=== PATIENT | male | born 1975 | race Caucasian/White ===

== ENCOUNTER 2017-05-24 17:15 | Emergency (ER) | payer SELFPAY ==
[2017-05-24 17:31] VITALS: BP 131/78; PULSE 114; BMI 32.3
[2017-05-24] MEDS ORDERED: ACETAMINOPHEN 325 MG TABLET (FP) PO ONE (17:35)
[2017-05-24] MEDS ORDERED: PENICILLIN G BENZATHINE 1,200,000 UNIT/2 ML PFS IM ONE (19:01)
[2017-05-24] MEDS ORDERED: IBUPROFEN 400 MG TABLET (FP) PO ONE ×2 (19:01→19:03)
[2017-05-24] MEDS ORDERED: PENICILLIN G BENZATHINE 2,400,000 UNIT/4 ML PFS ONE (19:03)
--- NOTE | 2017-05-24 19:08 | PDOC ---
History of Present Illness - General Chief Complaint: Cold Symptoms Stated Complaint: FEVER Time Seen by Provider: 05/24/17 18:20 History Source: Patient - History of Present Illness Timing/Duration: reports: yesterday Associated Symptoms: reports: fever/chills, sore throat. denies: cough, earache , facial pain, muscle aches, nasal congestion, nasal drainage, shortness of breath, wheezing Past History - Past Medical History Allergies/Adverse Reactions: Allergies Allergy/AdvReac Type Severity Reaction Status Date / Time No Known Allergies Allergy Verified 05/24/17 17:27 Kidney Stones: Yes - Psycho/Social/Smoking Cessation Hx Suicidal Ideation: No Smoking History: Current every day smoker Have you smoked in the past 12 months: Yes Number of Cigarettes Smoked Daily: 2 Information on smoking cessation initiated: No Review of Systems - Review of Systems Constitutional: Yes: Fever HEENTM: Yes: Throat Pain. No: Ear Pain Respiratory: No: Cough, Shortness of Breath ABD/GI: No: Diarrhea, Nausea, Vomiting *Physical Exam - Vital Signs Last Vital Signs Temp Pulse Resp BP Pulse Ox 103.1 F H 114 H 19 131/78 96 05/24/17 17:27 05/24/17 17:27 05/24/17 17:27 05/24/17 17:27 05/24/17 17:27 - Physical Exam General Appearance: Yes: Appropriately Dressed. No: Apparent Distress HEENT: positive: Normal Voice, TMs Normal, Tonsillar Exudate. negative: Scleral Icterus (R), Scleral Icterus (L) Neck: positive: Supple. negative: Lymphadenopathy (R), Lymphadenopathy (L) Respiratory/Chest: positive: Lungs Clear, Normal Breath Sounds. negative: Respiratory Distress Integumentary: positive: Dry, Warm Neurologic: positive: Fully Oriented, Alert, Normal Mood/Affect ED Treatment Course - Medications Given in the ED: ED Medications Discontinued Medications Generic Name Dose Route Start Last Admin Trade Name Freq PRN Reason Stop Dose Admin Acetaminophen 975 mg 05/24/17 17:35 05/24/17 17:36 Tylenol - PO 05/24/17 17:36 975 mg NOW ONE Administration Medical Decision Making - Medical Decision Making 05/24/17 19:04 41 yo M, denies pmhx, smoker, p/w sore throat w/ fever since yesterday. No sick contacts See exam Strep pharyngitis presumed Febrile to 103 and tachy at triage, improved w/ tylenol, w/ b/l tonsilar exudates, no e/o [employer] -bicillin -dc 05/24/17 19:08 05/24/17 19:09 05/24/17 19:40 *DC/Admit/Observation/Transfer Diagnosis at time of Disposition: Strep pharyngitis - Discharge Dispostion Disposition: HOME Condition at time of disposition: Improved - Patient Instructions Printed Discharge Instructions: Strep Throat Additional Instructions: Take motrin as needed for pain Return to ED for worsening of symptoms Print Language: SETSWANA
[2017-05-24 19:20] VITALS: TEMP 99.7
== END 2017-05-24 19:20 | disposition home or self-care (01) ==
LOC: JERFT 17:15
DX: J02.0 Streptococcal pharyngitis (principal); B95.0 Streptococcus, group A, as the cause of diseases classified elsewhere
CPT/HCPCS: 99281-25

== ENCOUNTER 2019-09-01 17:53 | Inpatient (IN) | payer OTHER ==
[2019-09-01 18:03] VITALS: BMI 33.9
--- NOTE | 2019-09-01 18:04 | PDOC ---
Rapid Medical Evaluation Chief Complaint: Pain Time Seen by Provider: 09/01/19 18:00 Medical Evaluation: Allergies Allergy/AdvReac Type Severity Reaction Status Date / Time No Known Allergies Allergy Verified 09/01/19 18:00 09/01/19 18:00 I have performed a brief in-person evaluation of this patient. The patient presents with a chief complaint of: 2-3 weeks of R sided chest pain radiating to the back w/ SOB and nausea. Denies trauma, no vomiting, no cold symptoms, no cough. H/o kidney stones Pertinent physical exam findings: Lungs CTA. RUQ/R flank tenderness I have ordered the following: UA, Ucx, CBC, CMP, cardiac enzymes, EKG, CXR, gallbladder/kidney sono The patient will proceed to the ED for further evaluation. 09/01/19 18:06 Discharge Disposition - Diagnosis Flank pain - Referrals - Patient Instructions - Post Discharge Activity
[2019-09-01] MEDS ORDERED: ACETAMINOPHEN 1000 MG/100 ML VIAL (NON FORMULARY) IVPB ONE (20:21)
[2019-09-01] MEDS ORDERED: SODIUM CHLORIDE 1,000 ML IV STA (20:21)
--- NOTE | 2019-09-01 20:27 | PDOC ---
History of Present Illness - General Chief Complaint: Pain Stated Complaint: PAIN Time Seen by Provider: 09/01/19 18:00 History Source: Patient Exam Limitations: No Limitations - History of Present Illness Initial Comments: 09/01/19 20:23 43y M with no significant presenting to ED with complaints of RUQ abdominal pain that worsened and has been constant for the past week. Pt states that he had the pain on and off for the past 2-3 weeks but last week it has been constant. Pain is RUQ, constant, radiates to the back, is 5/10 and is associated with nausea. The pain is worsened with meals. He denies vomiting, diarrhea, bloody stools, fevers, chills, chest pain, lightheadedness. Pain feels similar to the pain he had 10y ago which resulted in cholecystectomy PMD: none PMH: none PSH: Cholecystectomy 10y ago Meds: none Allergies: nkda Social: 5 cigarettes/day, occasional alcohol use Past History - Past Medical History Allergies/Adverse Reactions: Allergies Allergy/AdvReac Type Severity Reaction Status Date / Time No Known Allergies Allergy Verified 09/01/19 18:00 Home Medications: Ambulatory Orders Butalb/Acetaminophen/Caffeine [Fioricet 50-300-40 mg Capsule] 1 each PO QID PRN #20 capsule 06/20/18 COPD: No Kidney Stones: Yes - Immunization History Immunization Up to Date: Yes - Psycho Social/Smoking Cessation Hx Smoking History: Never smoked Have you smoked in the past 12 months: Yes Number of Cigarettes Smoked Daily: 2 Hx Alcohol Use: No Drug/Substance Use Hx: No Substance Use Type: None Review of Systems - Review of Systems Constitutional: No: Chills, Fever HEENTM: No: Symptoms Reported Respiratory: No: Shortness of Breath, Productive cough Cardiac (ROS): No: Chest Pain, Lightheadedness, Palpitations ABD/GI: Yes: See HPI, Nausea, Abdominal cramping. No: Constipated, Diarrhea, Vomiting : No: Symptoms Reported Musculoskeletal: Yes: See HPI Integumentary: No: Symptoms Reported Neurological: No: Symptoms reported *Physical Exam - Vital Signs Last Vital Signs Temp Pulse Resp BP Pulse Ox 99.3 F 78 17 116/74 99 09/01/19 18:00 09/01/19 18:00 09/01/19 18:00 09/01/19 18:00 09/01/19 18:00 - Physical Exam General Appearance: Yes: Nourished, Appropriately Dressed. No: Apparent Distress HEENT: positive: EOMI, RAFFAELE, Normal ENT Inspection. negative: Scleral Icterus ( R), Scleral Icterus (L) Neck: positive: Trachea midline, Supple. negative: Lymphadenopathy (R), Lymphadenopathy (L) Respiratory/Chest: positive: Lungs Clear, Normal Breath Sounds. negative: Crackles, Rales, Rhonchi, Stridor, Wheezing Cardiovascular: positive: Regular Rhythm, Regular Rate, S1, S2. negative: Edema , JVD, Murmur Vascular Pulses: Dorsalis-Pedis (R): 2+, Doralis-Pedis (L): 2+ Gastrointestinal/Abdominal: positive: Normal Bowel Sounds, Soft. negative: Tender Musculoskeletal: negative: CVA Tenderness Extremity: positive: Normal Capillary Refill. negative: Swelling, Calf Tenderness Integumentary: positive: Normal Color, Dry, Warm. 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 vitals wnl PE: RUQ tenderness +Díaz's sign. NO CVA tenderness. ddx includes but not limited to cholangitis, choledocolithiasis, pud, pancreatitis, kidney stone, pyelonephritis, gastritis. PERC negative labs ordered by rme, added trop. -iv fluids pepcid, ofirmev. POCUS: no ff. CTAP with IV contrast. 09/02/19 00:51 Central mesenteric fat stranding, mostly in left upper quadrant, possibly due to mesenteritis or edema. 7 mm hyperdensity in lower posterior aspect of central mesenteric fat haziness (axial image 76, for example), question incidental calcified lymph node versus a small aneurysm versus small acute hemoperitoneum of unknown origin. Advise followup to assess for stability. Prominent mesenteric and periportal lymph nodes. Consulting Surgery: Dr. Ervin Smith sending lactate. Spoke to Dr. Cruz who stated that this is likely mesenteric panniculitis. recommended to consult GI and admit for pain managment and obs. Will need repeat CT. CXR: no infiltrates, consolidations, effusions. ekg: nsr. microblog sent. -iv fluids, morphine dispo: admit. pt agrees to plan accepted by hospitalist Discharge - Discharge Information Problems reviewed: Yes Clinical Impression/Diagnosis: Mesenteric panniculitis Abdominal pain Qualifiers: Abdominal location: right upper quadrant Qualified Code(s): R10.11 - Right upper quadrant pain Condition: Stable - Admission Yes - Follow up/Referral - Patient Discharge Instructions - Post Discharge Activity
--- NOTE | 2019-09-01 20:36 | PDOC ---
Attending Attestation - Resident Resident Name: AnahiRocio - ED Attending Attestation I have performed the following: I have examined & evaluated the patient, The case was reviewed & discussed with the resident, I agree w/resident's findings & plan - HPI HPI: 09/02/19 03:48 see resident hpi - Physicial Exam PE: 09/02/19 03:51 agree with resident exam - Medical Decision Making 09/02/19 03:51 43-year-old male with abdominal pain CT scan of the abdomen and pelvis shows nonspecific hypodensity in the right upper quadrant Case discussed with surgery who feels it is mesenteric panniculitis Patient to be admitted to medical service for further evaluation
[2019-09-01] MEDS ORDERED: ACETAMINOPHEN INJECTION 100 ML IVPB ONE (20:51)
[2019-09-01 20:59] LABS: BASO % 0.9 % (0-2.0); EOS % 1.5 % (0-4.5); HEMOGLOBIN 14.5 GM/dL (11.7-16.9); LYMPH % 38.3 % (8-40); MCH 31.8 pg (25.7-33.7); MCHC 34.5 g/dl (32.0-35.9); MEAN PLT VOLUME 9.6 fl (7.5-11.1); MONO % 7.1 % (3.8-10.2); NEUT % 52.2 % (42.8-82.8); PLATELET COUNT 199 K/MM3 (134-434); RBC 4.56 M/mm3 (4.00-5.60); RDW 13.2 % (11.9-15.9)
[2019-09-01] MEDS ORDERED: FAMOTIDINE 20 MG/50 ML IVPB 20 MG/50 ML MG IVPB ONE ×2 (21:09→21:17)
[2019-09-01 21:16] LABS: ALBUMIN 3.6 g/dl (3.4-5.0); BILIRUBIN,TOTAL 0.5 mg/dL (0.2-1); BLOOD UREA NITROGEN 17.9 mg/dL (7-18); CALCIUM 8.7 mg/dL (8.5-10.1); POTASSIUM 4.2 mmol/L (3.5-5.1)
[2019-09-01 21:27] LABS: PH,URINE 5.5 (5.0-8.0); URINE APPEARANCE CLEAR; URINE BILIRUBIN NEGATIVE (NEGATIVE); URINE COLOR YELLOW; URINE GLUCOSE (UA) NEGATIVE (NEGATIVE); URINE KETONE TRACE (NEGATIVE); URINE LEUK ESTERASE NEGATIVE (NEGATIVE); URINE NITRITE NEGATIVE (NEGATIVE); URINE PROTEIN NEGATIVE (NEGATIVE); URINE UROBILINOGEN 0.2 mg/dL (0.2-1.0)
[2019-09-02] MEDS ORDERED: morphine CARPU-JECT 4 MG/1 ML DISP.SYRIN IVPUSH ONE (00:57)
[2019-09-02] MEDS ORDERED: morphine SULFATE 4 MG/ML VIAL ONE (01:02)
[2019-09-02] MEDS ORDERED: SODIUM CHLORIDE 1,000 ML IV STA (01:03)
--- NOTE | 2019-09-02 03:03 | PN ---
Teaching Attending Note Name of Resident: Corine Alba ATTENDING PHYSICIAN STATEMENT I saw and evaluated the patient. I reviewed the resident's note and discussed the case with the resident. I agree with the resident's findings and plan as documented. SUBJECTIVE: Patient is a 43 year old man with PMH of Kidney stones and Tobacco use presenting to the ER with complaints of worsening RUQ abdominal pain constant for the past week. Patient states that he had the pain on and off for the past 2 -3 weeks but last week it has been constant. Pain is RUQ, constant, radiates to the back, is 5/10 and is associated with nausea. The pain is worsened with meals. He denies vomiting, diarrhea, bloody stools, fevers, chills, chest pain or lightheadedness. Pain feels similar to the pain he had 10 years ago which resulted in cholecystectomy. Denies alcohol or illicit drug use. OBJECTIVE: Alert Vital Signs Period Temp Pulse Resp BP Sys/Hobbs Pulse Ox Last 24 Hr 99.3 F 78 17 116/74 99 HEENT: No Jaundice, eye redness or discharge, PERRLA, EOMI. Normocephalic, atraumatic. External ears are normal and hearing is grossly intact. No nasal discharge. Neck: Supple, nontender. No palpable adenopathy or thyromegaly. No JVD Chest: Good effort. Clear to auscultation and percussion. Heart: Regular. No S3, rub or murmur Abdomen: Not distended, soft, RUQ and right flank tenderness and no HSM. No rebound or guarding. Normal bowel sounds. Ext: Peripheral pulses intact. No leg edema. Skin: Warm and dry. No petechiae, rash or ecchymosis. Neuro: Alert. Oriented x3. CN 2-12 grossly intact. Sensation grossly intact in all four extremities and DTR are symmetric. Psych: Appropriate mood and affect. Good insight. Home Medications Medication Instructions Recorded Butalb/Acetaminophen/Caffeine 1 each PO QID PRN #20 capsule 06/20/18 [Fioricet 50-300-40 mg Capsule] Abnormal Lab Results 09/01/19 09/01/19 20:30 21:00 Anion Gap 7 L Urine Ketones Trace H ASSESSMENT AND PLAN: 1. Mesenteric Panniculitis - No obvious risk factor. CT abdomen/pelvis with IV contrast showed "Central mesenteric fat stranding, mostly in left upper quadrant , possibly due to mesenteritis or edema. 7 mm hyperdensity in lower posterior aspect of central mesenteric fat haziness (axial image 76, for example), question incidental calcified lymph node versus a small aneurysm versus small acute hemoperitoneum of unknown origin. Advise followup to assess for stability. Prominent mesenteric and periportal lymph nodes." ER staff spoke to Dr. Cruz who stated that this is likely mesenteric panniculitis. Will keep him NPO, give IV NS and treat with use IV morphine for pain management. Will give IV protonix in case he has peptic ulcer disease. Consult GI for possible EGD. No acute abnormality on CXR - possible LLL atelectasis. EKG is pending. Will continue comprehensive care for all of patient s comorbid conditions. 2. Tobacco Use Counseled on risks associated with tobacco use. We will provide patient all the necessary assistance to facilitate smoking cessation and prescribe Nicotine patch. 3. Obesity Counseled on the risks associated with obesity. Will provide patient all the necessary assistance, counseling and positive reinforcement to facilitate weight loss. Consult sales specialist. 4. DVT prophylaxis - Lovenox 40 mg SQ q 24 hours. 5. Advance directives - Full code
[2019-09-02] MEDS ORDERED: MORPHINE SULFATE 2 MG/ML VIAL IVPUSH PRN (03:36)
[2019-09-02] MEDS: SODIUM CHLORIDE 1,000 ML IV SCH ×2 (03:53→18:42)
--- NOTE | 2019-09-02 04:58 | HP ---
CHIEF COMPLAINT: abdominal pain PCP: none HISTORY OF PRESENT ILLNESS: 43 y.o. M with no significant past medical history presenting for RUQ pain. Pt states the pain has been present x 3 weeks, was intermittent for the first 2 weeks and has been constant for the past 1 week. Today the pain is 5/10 and has not improved s/p morphine & tylenol given in ED. The pain initially radiated to the back on admission but is now localized to RUQ. Pt had a steak meal earlier in the day today which worsened his abdominal pain so he hasnt eaten anything since. He c/o nausea but no vomiting. Denies fevers/ chills/ ARITA/ vomiting/ weight changes/ urinary or bowel symptoms. ER course was notable for: (1) IVF: NS 1L x 2 (2) Morphine 4mg IV, 1g IV tylenol, Pepcid 20mg IV (3) CT abd pelvis, read by surgery Dr. 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 Smokin-6 cigarettes daily x 2 years. Alcohol: occasional on weekends only Drugs: denies Allergies No Known Allergies Allergy (Verified 09/01/19 18:00) Family Hx: Mother- passed from lung [place] HOME MEDICATIONS: Home Medications Medication Instructions Recorded Butalb/Acetaminophen/Caffeine 1 each PO QID PRN #20 capsule 06/20/18 [Fioricet 50-300-40 mg Capsule] PHYSICAL EXAMINATION Vital Signs - 24 hr 09/01/19 09/02/19 18:00 03:54 Temperature 99.3 F Pulse Rate 78 Pulse Rate [ 62 Left] Respiratory 17 18 Rate Blood Pressure 116/74 Blood Pressure 115/67 [Left Arm] O2 Sat by Pulse 99 97 Oximetry (%) GENERAL: Awake, alert, and fully oriented, in no acute distress. HEENT: NCAT. PERRLA. No lymphadenopathy. LUNGS: Breath sounds equal, clear to auscultation bilaterally. No wheezes, and no crackles. No accessory muscle use. HEART: Regular rate and rhythm, normal S1 and S2 without murmur, rub or gallop. ABDOMEN: TTP RUQ. + murphys. Soft, not distended, normoactive bowel sounds, no guarding, no rebound. MUSCULOSKELETAL: Normal range of motion at all joints EXTR: 2+ pulses palpated/ bl UE & LE. No peripheral edema. NEUROLOGICAL: Cranial nerves II-XII intact PSYCHIATRIC: Appropriate mood and affect. SKIN: No rashes/ lesions noted. Laboratory Results - last 24 hr 09/01/19 09/01/19 09/01/19 20:30 20:30 20:30 WBC 8.0 RBC 4.56 Hgb 14.5 Hct 42.0 MCV 92.0 MCH 31.8 MCHC 34.5 RDW 13.2 Plt Count 199 MPV 9.6 Absolute Neuts (auto) 4.2 Neutrophils % 52.2 Lymphocytes % 38.3 Monocytes % 7.1 Eosinophils % 1.5 Basophils % 0.9 Nucleated RBC % 0 Sodium 142 Potassium 4.2 Chloride 106 Carbon Dioxide 30 Anion Gap 7 L BUN 17.9 Creatinine 1.0 Est GFR (CKD-EPI)AfAm 105.62 Est GFR (CKD-EPI)NonAf 91.13 Random Glucose 96 Lactic Acid Calcium 8.7 Total Bilirubin 0.5 AST 27 ALT 42 Alkaline Phosphatase 83 Troponin I < 0.02 Total Protein 7.0 Albumin 3.6 Lipase 221 Urine Color Urine Appearance Urine pH Ur Specific [place] Urine Protein Urine Glucose (UA) Urine Ketones Urine Blood Urine Nitrite Urine Bilirubin Urine Urobilinogen Ur Leukocyte Esterase 09/01/19 09/02/19 21:00 00:47 WBC RBC Hgb Hct MCV MCH MCHC RDW Plt Count MPV Absolute Neuts (auto) Neutrophils % Lymphocytes % Monocytes % Eosinophils % Basophils % Nucleated RBC % Sodium Potassium Chloride Carbon Dioxide Anion Gap BUN Creatinine Est GFR (CKD-EPI)AfAm Est GFR (CKD-EPI)NonAf Random Glucose Lactic Acid 0.5 Calcium Total Bilirubin AST ALT Alkaline Phosphatase Troponin I Total Protein Albumin Lipase Urine Color Yellow Urine Appearance Clear Urine pH 5.5 Ur Specific [place] 1.025 Urine Protein Negative Urine Glucose (UA) Negative Urine Ketones Trace H Urine Blood Negative Urine Nitrite Negative Urine Bilirubin Negative Urine Urobilinogen 0.2 Ur Leukocyte Esterase Negative ASSESSMENT/PLAN: 43 y.o. M with no significant past medical history presenting for RUQ pain. #Mesenteric panniculitis -Afebrile, vitals stable -Surgery consulted (Dr. Lopez)-- CT read appreciated. Recommends GI input prior to surgical options -Unknown etiology: poss prior abd surgery? -F/u GI recs- Dr. Mensah-- poss EGD r/o PUD -NPO -IVF -Morphine 1mg IV prn for pain control -IV protonix 40mg IV daily #Tobacco dependence -Nicotine patch -Counselled pt on risks of cigarette smoking which include but are not limited to lung disease, cardiovascular disease, organ dysfunction and #FEN -IVF NS @75mL/ hr -monitor lytes -NPO #PPX DVT: SCDs -- hold AC pending GI recs GI: Protonix 40mg IV daily Visit type - Emergency Visit Emergency Visit: Yes ED Registration Date: 09/02/19 Care time: The patient presented to the Emergency Department on the above date and was hospitalized for further evaluation of their emergent condition. - New Patient This patient is new to me today: Yes Date on this admission: 09/02/19 - Critical Care Critical Care patient: No ATTENDING PHYSICIAN STATEMENT I saw and evaluated the patient. I reviewed the resident's note and discussed the case with the resident. I agree with the resident's findings and plan as documented. SUBJECTIVE: OBJECTIVE: ASSESSMENT AND PLAN:
[2019-09-02 06:02] LABS: HEMATOCRIT 40.3 % (35.4-49); MCH 31.7 pg (25.7-33.7); MCHC 34.8 g/dl (32.0-35.9); MEAN CELL VOLUME 91.1 fl (80-96); MEAN PLT VOLUME 9.6 fl (7.5-11.1); PLATELET COUNT 188 K/MM3 (134-434); RBC 4.42 M/mm3 (4.00-5.60); RDW 13.1 % (11.9-15.9); WHITE BLOOD COUNT 5.8 K/mm3 (4.0-10.0)
[2019-09-02 06:33] LABS: ALBUMIN 3.2 g/dl (3.4-5.0); BILIRUBIN,TOTAL 0.5 mg/dL (0.2-1); BLOOD UREA NITROGEN 16.2 mg/dL (7-18); CALCIUM 8.1 mg/dL (8.5-10.1); CREATININE 0.7 mg/dL (0.55-1.3); MAGNESIUM 2.1 mg/dL (1.8-2.4); PHOSPHOROUS 4.1 mg/dL (2.5-4.9); TOT PROT 6.1 g/dl (6.4-8.2)
[2019-09-02] MEDS ORDERED: ACETAMINOPHEN 1000 MG/100 ML VIAL (NON FORMULARY) IVPB PRN (09:01)
--- NOTE | 2019-09-02 12:52 | EKG ---
Test Reason : Blood Pressure : / mmHG Vent. Rate : 067 BPM Atrial Rate : 067 BPM P-R Int : 168 ms QRS Dur : 112 ms QT Int : 394 ms P-R-T Axes : 035 012 046 degrees QTc Int : 416 ms NORMAL SINUS RHYTHM INCOMPLETE RIGHT BUNDLE BRANCH BLOCK BORDERLINE ECG NO PREVIOUS ECGS AVAILABLE Confirmed by Cristian Barnhart MD ([id number]) on 09/02/2019 12:51:51 PM Referred By: Confirmed By:Cristian Barnhart MD
[2019-09-02] MEDS: PANTOPRAZOLE SODIUM 40 MG VIAL IVPUSH SCH (12:53)
[2019-09-02] MEDS: KETOROLAC TROMETHAMINE 15 MG/ML VIAL IVPUSH PRN ×2 (13:03→22:06)
--- NOTE | 2019-09-02 13:56 | PN ---
Teaching Attending Note Name of Resident: Aron Sparks ATTENDING PHYSICIAN STATEMENT I saw and evaluated the patient. I reviewed the resident's note and discussed the case with the resident. I agree with the resident's findings and plan as documented with exceptions below. SUBJECTIVE: Patient seen and examined, right sided pain improved, no new complaints. OBJECTIVE: Vital Signs Period Temp Pulse Resp BP Sys/Hobbs Pulse Ox Last 24 Hr 99.3 F 62-78 17-18 115-116/67-74 97-99 Intake & Output 08/30/19 08/31/19 09/01/19 09/02/19 23:59 23:59 23:59 23:59 Weight 210 lb 210 lb 3.2 oz General: sitting in bed in no acute distress Chest: CTAB, no rales or wheezing Abdomen:soft, mild RUQ tenderness, neg Díaz's sign, no voluntary or involuntary guarding or rigidity, pos bowel sounds extremities: no edema Home Medications Medication Instructions Recorded Butalb/Acetaminophen/Caffeine 1 each PO QID PRN #20 capsule 06/20/18 [Fioricet 50-300-40 mg Capsule] Active Medications Acetaminophen (Ofirmev Injection -) 1,000 mg IVPB Q6H PRN PRN Reason: PAIN LEVEL 1-5 Sodium Chloride (Normal Saline -) 1,000 mls @ 75 mls/hr IV [facility] Last Admin: 09/02/19 03:53 Dose: 75 mls/hr Ketorolac Tromethamine (Toradol Injection -) 15 mg IVPUSH Q6H PRN PRN Reason: PAIN LEVEL 6-10 Stop: 09/07/19 09:01 Last Admin: 09/02/19 13:03 Dose: 15 mg Pantoprazole Sodium (Protonix Iv) 40 mg IVPUSH DAILY [facility] Last Admin: 09/02/19 12:53 Dose: 40 mg Laboratory Results - last 24 hr 09/01/19 09/01/19 09/01/19 20:30 20:30 20:30 WBC 8.0 RBC 4.56 Hgb 14.5 Hct 42.0 MCV 92.0 MCH 31.8 MCHC 34.5 RDW 13.2 Plt Count 199 MPV 9.6 Absolute Neuts (auto) 4.2 Neutrophils % 52.2 Lymphocytes % 38.3 Monocytes % 7.1 Eosinophils % 1.5 Basophils % 0.9 Nucleated RBC % 0 Sodium 142 Potassium 4.2 Chloride 106 Carbon Dioxide 30 Anion Gap 7 L BUN 17.9 Creatinine 1.0 Est GFR (CKD-EPI)AfAm 105.62 Est GFR (CKD-EPI)NonAf 91.13 Random Glucose 96 Lactic Acid Calcium 8.7 Phosphorus Magnesium Total Bilirubin 0.5 AST 27 ALT 42 Alkaline Phosphatase 83 Troponin I < 0.02 Total Protein 7.0 Albumin 3.6 Lipase 221 Urine Color Urine Appearance Urine pH Ur Specific [place] Urine Protein Urine Glucose (UA) Urine Ketones Urine Blood Urine Nitrite Urine Bilirubin Urine Urobilinogen Ur Leukocyte Esterase Blood Type Antibody Screen 09/01/19 09/02/19 09/02/19 21:00 00:47 05:27 WBC 5.8 RBC 4.42 Hgb 14.0 Hct 40.3 MCV 91.1 MCH 31.7 MCHC 34.8 RDW 13.1 Plt Count 188 MPV 9.6 Absolute Neuts (auto) Neutrophils % Lymphocytes % Monocytes % Eosinophils % Basophils % Nucleated RBC % Sodium Potassium Chloride Carbon Dioxide Anion Gap BUN Creatinine Est GFR (CKD-EPI)AfAm Est GFR (CKD-EPI)NonAf Random Glucose Lactic Acid 0.5 Calcium Phosphorus Magnesium Total Bilirubin AST ALT Alkaline Phosphatase Troponin I Total Protein Albumin Lipase Urine Color Yellow Urine Appearance Clear Urine pH 5.5 Ur Specific [place] 1.025 Urine Protein Negative Urine Glucose (UA) Negative Urine Ketones Trace H Urine Blood Negative Urine Nitrite Negative Urine Bilirubin Negative Urine Urobilinogen 0.2 Ur Leukocyte Esterase Negative Blood Type Antibody Screen 09/02/19 09/02/19 09/02/19 05:27 05:30 09:55 WBC RBC Hgb Hct MCV MCH MCHC RDW Plt Count MPV Absolute Neuts (auto) Neutrophils % Lymphocytes % Monocytes % Eosinophils % Basophils % Nucleated RBC % Sodium 140 Potassium 4.0 Chloride 110 H Carbon Dioxide 25 Anion Gap 5 L BUN 16.2 Creatinine 0.7 Est GFR (CKD-EPI)AfAm 133.02 Est GFR (CKD-EPI)NonAf 114.77 Random Glucose 92 Lactic Acid Calcium 8.1 L Phosphorus 4.1 Magnesium 2.1 Total Bilirubin 0.5 AST 22 ALT 38 Alkaline Phosphatase 73 Troponin I Total Protein 6.1 L Albumin 3.2 L Lipase Urine Color Urine Appearance Urine pH Ur Specific [place] Urine Protein Urine Glucose (UA) Urine Ketones Urine Blood Urine Nitrite Urine Bilirubin Urine Urobilinogen Ur Leukocyte Esterase Blood Type B POSITIVE B POSITIVE Antibody Screen Negative CT A/P results reviewed ASSESSMENT AND PLAN: 43 yom with no significant PMHx admitted with RUQ abdominal pain, found with mesentric panniculitis -Mesentric Panniculitis -Obesity Plan; Advance to clears IVF, supportive treatment. Gi input Dispo dc in 24 hours if tolerating diet well and no new concerns. Discussed with patient and nursing.
--- NOTE | 2019-09-02 15:50 | EKG ---
Test Reason : Blood Pressure : / mmHG Vent. Rate : 053 BPM Atrial Rate : 053 BPM P-R Int : 190 ms QRS Dur : 110 ms QT Int : 450 ms P-R-T Axes : 035 002 025 degrees QTc Int : 422 ms SINUS BRADYCARDIA OTHERWISE NORMAL ECG WHEN COMPARED WITH ECG OF 01-SEP-2019 18:00, INCOMPLETE RIGHT BUNDLE BRANCH BLOCK IS NO LONGER PRESENT Confirmed by Logan Rendon ([id number]) on 09/02/2019 3:50:31 PM Referred By: Confirmed By:Logan Rendon
--- NOTE | 2019-09-02 18:06 | PN ---
Physical Exam: SUBJECTIVE: Patient seen and examined. Endorses improved of Right-sided abdominal pain, nausea. OBJECTIVE: Vital Signs Period Temp Pulse Resp BP Sys/Hobbs Pulse Ox Last 24 Hr 97.7 F-99.3 F 53-78 17-18 104-116/67-74 97-99 GENERAL: awake, alert, and fully oriented. NAD HEAD: Normal with no signs of trauma. EYES: sclera anicteric, conjunctiva w/o pallor ENT: Ears normal, nares patent, moist mucous membranes. NECK: Trachea midline, full range of motion, supple. LUNGS: Breath sounds equal, clear to auscultation bilaterally, no wheezes, no crackles, no accessory muscle use. HEART: Regular rate and rhythm, S1, S2 without murmur, rub or gallop. ABDOMEN: Soft, nondistended, no guarding, no rebound. Has tenderness w/ deep palpation of RUQ. EXTREMITIES: 2+ pulses, warm, well-perfused, no edema. NEUROLOGICAL: Normal speech, gait not observed. PSYCH: Normal mood, normal affect. SKIN: Warm, dry, normal turgor, no rashes or lesions noted Laboratory Results - last 24 hr 09/01/19 09/01/19 09/01/19 20:30 20:30 20:30 WBC 8.0 RBC 4.56 Hgb 14.5 Hct 42.0 MCV 92.0 MCH 31.8 MCHC 34.5 RDW 13.2 Plt Count 199 MPV 9.6 Absolute Neuts (auto) 4.2 Neutrophils % 52.2 Lymphocytes % 38.3 Monocytes % 7.1 Eosinophils % 1.5 Basophils % 0.9 Nucleated RBC % 0 Sodium 142 Potassium 4.2 Chloride 106 Carbon Dioxide 30 Anion Gap 7 L BUN 17.9 Creatinine 1.0 Est GFR (CKD-EPI)AfAm 105.62 Est GFR (CKD-EPI)NonAf 91.13 Random Glucose 96 Lactic Acid Calcium 8.7 Phosphorus Magnesium Total Bilirubin 0.5 AST 27 ALT 42 Alkaline Phosphatase 83 Troponin I < 0.02 Total Protein 7.0 Albumin 3.6 Lipase 221 Urine Color Urine Appearance Urine pH Ur Specific Ronan Urine Protein Urine Glucose (UA) Urine Ketones Urine Blood Urine Nitrite Urine Bilirubin Urine Urobilinogen Ur Leukocyte Esterase Blood Type Antibody Screen 09/01/19 09/02/19 09/02/19 21:00 00:47 05:27 WBC 5.8 RBC 4.42 Hgb 14.0 Hct 40.3 MCV 91.1 MCH 31.7 MCHC 34.8 RDW 13.1 Plt Count 188 MPV 9.6 Absolute Neuts (auto) Neutrophils % Lymphocytes % Monocytes % Eosinophils % Basophils % Nucleated RBC % Sodium Potassium Chloride Carbon Dioxide Anion Gap BUN Creatinine Est GFR (CKD-EPI)AfAm Est GFR (CKD-EPI)NonAf Random Glucose Lactic Acid 0.5 Calcium Phosphorus Magnesium Total Bilirubin AST ALT Alkaline Phosphatase Troponin I Total Protein Albumin Lipase Urine Color Yellow Urine Appearance Clear Urine pH 5.5 Ur Specific Ronan 1.025 Urine Protein Negative Urine Glucose (UA) Negative Urine Ketones Trace H Urine Blood Negative Urine Nitrite Negative Urine Bilirubin Negative Urine Urobilinogen 0.2 Ur Leukocyte Esterase Negative Blood Type Antibody Screen 09/02/19 09/02/19 09/02/19 05:27 05:30 09:55 WBC RBC Hgb Hct MCV MCH MCHC RDW Plt Count MPV Absolute Neuts (auto) Neutrophils % Lymphocytes % Monocytes % Eosinophils % Basophils % Nucleated RBC % Sodium 140 Potassium 4.0 Chloride 110 H Carbon Dioxide 25 Anion Gap 5 L BUN 16.2 Creatinine 0.7 Est GFR (CKD-EPI)AfAm 133.02 Est GFR (CKD-EPI)NonAf 114.77 Random Glucose 92 Lactic Acid Calcium 8.1 L Phosphorus 4.1 Magnesium 2.1 Total Bilirubin 0.5 AST 22 ALT 38 Alkaline Phosphatase 73 Troponin I Total Protein 6.1 L Albumin 3.2 L Lipase Urine Color Urine Appearance Urine pH Ur Specific Ronan Urine Protein Urine Glucose (UA) Urine Ketones Urine Blood Urine Nitrite Urine Bilirubin Urine Urobilinogen Ur Leukocyte Esterase Blood Type B POSITIVE B POSITIVE Antibody Screen Negative Active Medications Generic Name Dose Route Start Last Admin Trade Name Freq PRN Reason Stop Dose Admin Acetaminophen 1,000 mg 09/02/19 09:01 Ofirmev Injection - IVPB Q6H PRN PAIN LEVEL 1-5 Sodium Chloride 1,000 mls @ 75 mls/hr 09/02/19 03:45 09/02/19 03:53 Normal Saline - IV 75 mls/hr ASDIR JIM Administration Ketorolac Tromethamine 15 mg 09/02/19 09:02 09/02/19 13:03 Toradol Injection - IVPUSH 09/07/19 09:01 15 mg Q6H PRN Administration PAIN LEVEL 6-10 Pantoprazole Sodium 40 mg 09/02/19 10:00 09/02/19 12:53 Protonix Iv IVPUSH 40 mg DAILY JIM Administration Vital Signs Temp 97.9 F 09/02/19 14:41 Pulse 53 L 09/02/19 14:41 Resp 18 09/02/19 14:41 BP 104/72 09/02/19 14:41 Pulse Ox 97 09/02/19 03:54 Intake & Output 09/01/19 09/02/19 09/02/19 23:59 11:59 23:59 Weight 95.254 kg 95.345 kg Other: Voiding Method Toilet Height 5 ft 6 in 5 ft 6 in Body Mass Index (BMI) 33.9 33.9 Weight Measurement Method Standing Scale Weight Measurement Method Est/Stated by Patient ASSESSMENT/PLAN: 43 y.o. M with no significant past medical history presenting for cramping RUQ pain x2 weeks. #crampy RUQ/Right-sided abdominal pain >CT A/P(09/02/19): mid-left abd w/ haziness of mesenteric fat; small LNs noted. Possible mesenteric panniculitis -Surgery consulted (Dr. Lopez)-- CT read appreciated. --Recommends GI input prior to surgical options -F/u GI recs- Dr. Mensah-- poss EGD r/o PUD -Morphine 1mg IV prn for pain control -IV protonix 40mg IV daily #Tobacco dependence -Nicotine patch -Counselled pt on risks of cigarette smoking which include but are not limited to lung disease, cardiovascular disease, organ dysfunction and #FEN -IVF NS @75mL/ hr -monitor lytes -CLD #PPX DVT: SCDs -- hold AC pending GI recs GI: Protonix 40mg IV daily Visit type - Emergency Visit Emergency Visit: No - New Patient This patient is new to me today: No - Critical Care Critical Care patient: No ATTENDING PHYSICIAN STATEMENT I saw and evaluated the patient. I reviewed the resident's note and discussed the case with the resident. I agree with the resident's findings and plan as documented. SUBJECTIVE: OBJECTIVE: ASSESSMENT AND PLAN:
--- NOTE | 2019-09-02 20:14 | CONS ---
DATE OF CONSULTATION: 09/02/2019 The patient is a 43-year-old man, with no significant past medical history except for cholecystectomy, who presented to the hospital with complaints of right upper quadrant pain. Apparently this pain has been there for 3 to 4 weeks, was intermittent; however, over the last week has become constant. His pain did not improve with morphine and Tylenol in the emergency room. He states his symptoms worsened with p.o. intake. He denies radiation of the pain. He admits to some intermittent nausea. Denies diarrhea, constipation, fevers, chills, or blood in the stool. He has never had an endoscopic evaluation in the past. He has never had similar episode in the past. PAST MEDICAL AND SURGICAL HISTORY: As listed in the HPI. ALLERGIES: No known drug allergies. SOCIAL HISTORY: Lives with his and 2 children. He has been smoking 5 to 6 cigarettes daily for 2 years, occasionally drinks beers on the weekend. Denies any drug abuse. FAMILY HISTORY: No history of GI or gynecological malignancy. There is a history of lung cancer in the family. Home medications include Fioricet. PHYSICAL EXAMINATION: Vital Signs: Temperature 98, pulse 58, blood pressure 120/69, respiratory rate 18, oxygen saturation 99% on room air. General: No acute distress. HEENT: Anicteric sclerae. Cardiovascular: S1, S2, regular rate and rhythm. Lungs: Bilaterally clear to auscultation. Abdomen: Soft, nontender. Extremities: Without any edema. LABORATORY DATA: White blood cell count 5.8, hemoglobin 14, hematocrit 40, MCV 91, platelet count 188. Sodium 140, potassium 4.0, BUN 16, creatinine 0.7, lactic acid 0.5, total bilirubin 0.5, AST 22, ALT 38, alkaline phosphatase 73, lipase 221. Urine: Trace ketones. Culture of the urine is pending. He had a CT scan of the abdomen and pelvis, which was done with contrast and revealed diffuse fatty infiltration of the liver and there was haziness within the mesenteric fat in the mid left abdomen with a few small lymph nodes that are identified. The findings are nonspecific but can be indicative of panniculitis. There was no pneumoperitoneum or obstruction or intraabdominal abscesses or diverticulitis. IMPRESSION: Right upper quadrant abdominal pain with associated nausea. Imaging findings and biochemical testing is not consistent with a biliary process. Imaging reveals nonspecific findings of ? panniculitis in the left abdomen. RECOMMENDATION: Panculture to exclude infectious etiology of the panniculitis. Obtain ESR & CRP to exclude an underlying rheumatological / inflammatory issue. Diet can be advanced as tolerated. Start protonix 40 mg po qd. Pain management. If his symptoms do not improve may consider endoscopic evaluation. For now would treat conservatively. Rheum and surgery evaluation. DO KIMBERLY STANLEY/[id number] MTDD
[2019-09-03] MEDS: SODIUM CHLORIDE 1,000 ML IV SCH (10:13)
[2019-09-03] MEDS: PANTOPRAZOLE SODIUM 40 MG VIAL IVPUSH SCH (10:14)
[2019-09-03 10:34] VITALS: BP 104/62; PULSE 56; TEMP 98.2
--- NOTE | 2019-09-03 12:06 | PN ---
Teaching Attending Note Name of Resident: Aron Sparks ATTENDING PHYSICIAN STATEMENT I saw and evaluated the patient. I reviewed the resident's note and discussed the case with the resident. I agree with the resident's findings and plan as documented with exceptions below. SUBJECTIVE: Patient seen and examined. no abdominal pain, tolerating diet well. OBJECTIVE: Vital Signs Period Temp Pulse Resp BP Sys/Hobbs Pulse Ox Last 24 Hr 97.8 F-98.6 F 53-59 18-18 103-122/62-73 95 Intake & Output 08/31/19 09/01/19 09/02/19 09/03/19 23:59 23:59 23:59 23:59 Intake Total 300 400 Balance 300 400 Weight 210 lb 210 lb 3.2 oz General:sitting in bed, no acute distress neck: soft, supple Chest: CTAB, no rales or wheezing Abdomen:Soft, obese, NT throughout, pos bowel sounds extremities: no edema Home Medications Medication Instructions Recorded Pantoprazole Sodium [Protonix] 40 mg PO DAILY #30 tablet. 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 ESR/CRP neg. GI input noted Dc home today with outpatient GI/Rheumatology follow up Discussed with patient and nursing, all questions answered.
--- NOTE | 2019-09-03 12:36 | DS ---
Physical Exam: SUBJECTIVE: Patient seen and examined OBJECTIVE: Vital Signs Period Temp Pulse Resp BP Sys/Hobbs Pulse Ox Last 24 Hr 97.8 F-98.6 F 53-59 18-18 103-122/62-73 95 PHYSICAL EXAM GENERAL: The patient is awake, alert, and fully oriented, in no acute distress. HEAD: Normal with no signs of trauma. EYES: PERRL, extraocular movements intact, sclera anicteric, conjunctiva clear. ENT: Ears normal, nares patent, oropharynx clear without exudates, moist mucous membranes. NECK: Trachea midline, full range of motion, supple. LUNGS: Breath sounds equal, clear to auscultation bilaterally, no wheezes, no crackles, no accessory muscle use. HEART: Regular rate and rhythm, S1, S2 without murmur, rub or gallop. ABDOMEN: Soft, nontender, nondistended, normoactive bowel sounds, no guarding, no rebound, no hepatosplenomegaly, no masses. EXTREMITIES: 2+ pulses, warm, well-perfused, no edema. NEUROLOGICAL: Cranial nerves II through XII grossly intact. Normal speech, gait not observed. PSYCH: Normal mood, normal affect. SKIN: Warm, dry, normal turgor, no rashes or lesions noted. LABS Laboratory Results - last 24 hr 09/03/19 09/03/19 09:30 09:30 ESR 9 C-Reactive Protein < 0.3 HOSPITAL COURSE: Date of Admission:09/02/19 Date of Discharge: 09/03/19 Discharge Summary Problems reviewed: Yes Reason For Visit: SCLEROSING MESENTERITIS Current Active Problems Abdominal panniculus, symptomatic (Acute) Fatty liver (Chronic) Condition: Stable - Instructions Diet, Activity, Other Instructions: You were evaluated in the hospital for severe abdominal pain and found with condition call "MESENTRIC PANNICULITIS". Imaging showing a fatty liver and inflammation of the fat surrounding some of the intestines. Your pain improved after receiving pain medications and continued to improve without pain medications. A intervention analyst recommended starting a new medication NEW medication: -pantoprazole(PROTONIX) 40mg, once daily -continue with other home medications Please follow-up withe physicians listed below: - Vice President Of Brand Management(Dr Renee): to follow-up on your abdominal pain and discussion of further imaging or labwork as needed - Car Mechanic(Dr Futran): to discuss the inflammation around some of the intestines and discussion of further imaging or labwork as needed - PCP: to discuss your fatty liver, lipid testing and lifestyle modifications Additional Instructions: - avoid fatty foods - avoid substances such as tobacco, alcohol, drugs Please seek immediate medical attention or go to the Emergency Department if you experience: - uncontrolled nausea, vomiting, abdominal pain - blood in your stool - unintenional weight loss of more than 10 pounds within a month or any new concerns. Referrals: Christian Vazquez MD [Staff Physician] - Lana Renee DO [Staff Physician] - Disposition: HOME - Home Medications Comprehensive Discharge Medication List: Ambulatory Orders Pantoprazole Sodium [Protonix] 40 mg PO DAILY #7 tablet. 09/03/19 ATTENDING PHYSICIAN STATEMENT I saw and evaluated the patient. I reviewed the resident's note and discussed the case with the resident. I agree with the resident's findings and plan as documented. SUBJECTIVE: OBJECTIVE: ASSESSMENT AND PLAN:
== END 2019-09-03 13:34 | disposition home or self-care (01) | DRG 395 ==
LOC: JER 17:53 → JERBED 09-02 01:03 → J7W 09-02 08:51
PROVIDERS: ADMIT Internal Medicine; ATTEND Hospitalist
DX: K65.4 Sclerosing mesenteritis (principal); E66.9 Obesity, unspecified; Z68.33 Body mass index [BMI] 33.0-33.9, adult; F17.210 Nicotine dependence, cigarettes, uncomplicated; K76.0 Fatty (change of) liver, not elsewhere classified
CPT/HCPCS: 36415; 71046-TC-FY; 74177-TC; 80053; 81003; 83605; 83690; 83735; 84100; 84484; 85025; 85027; 85651; 86140; 86850; 86900; 86901; 87086; 93005; 93010; 99285-25; J0131; J7030

== ENCOUNTER 2022-10-20 07:13 | Emergency (ER) | payer OTHER ==
[2022-10-20 07:40] VITALS: BP 124/81; PULSE 68; RESP 16; TEMP 98.2; BMI 33.0
[2022-10-20] MEDS ORDERED: DIPHTH,PERTUSS(ACELL),TET 0.5 ML DISP.SYRIN IM ONE ×3 (07:54→08:01)
[2022-10-20] MEDS ORDERED: IBUPROFEN 600 MG TABLET (FP) PO ONE (07:54)
== END 2022-10-20 08:17 | disposition home or self-care (01) ==
LOC: JERFT 07:13 → JER 07:13 → JERFT 08:17
PROC: 3E0234Z Introduction of Serum, Toxoid and Vaccine into Muscle, Percutaneous Approach (ICD-10-PCS; principal; 2022-10-20)
DX: S20.211A Contusion of right front wall of thorax, initial encounter (principal); S01.81XA Laceration without foreign body of other part of head, initial encounter; M79.661 Pain in right lower leg; W22.8XXA Striking against or struck by other objects, initial encounter
CPT/HCPCS: 71046-TC-FY; 99284-25